=== PATIENT | female | born 1975 | race Two or more races ===

== ENCOUNTER → 2024-09-22 | Outpatient (CLI) | payer SELFPAY | LOC: M WHC 13:47 | PROVIDERS: ATTEND Nurse Practitioner Family | DX: Z12.31 Encounter for screening mammogram for malignant neoplasm of breast (principal) ==

== ENCOUNTER → 2024-09-22 | Outpatient (REF) | payer SELFPAY, OTHER ==
[2024-09-24 15:17] LABS: HPV APTIMA Not Detected (Not Detected)
== END ==
LOC: M SFHCWAGY 17:39
PROVIDERS: ATTEND Nurse Practitioner Family
DX: Z12.4 Encounter for screening for malignant neoplasm of cervix (principal)
CPT/HCPCS: 87624; G0123